=== PATIENT | female | born 1975 | race Caucasian/White ===

== ENCOUNTER 2022-12-11 08:33 | Outpatient (CLI) | payer OTHER ==
[~2022-12-11 08:33] MED LIST: INVOKAMET PO; TOPROL XL50 M1 PO; TYLENOL-CODEINE1 TAB PO
== END 2022-12-11 08:45 | disposition home or self-care (01) ==
LOC: MRI 08:33
PROVIDERS: ATTEND Obstetrics & Gynecology Gynecology
DX: D25.1 Intramural leiomyoma of uterus (principal); N92.1 Excessive and frequent menstruation with irregular cycle
CPT/HCPCS: 72196

== ENCOUNTER 2024-03-22 10:45 | Inpatient (IN) | payer OTHER ==
[~2024-03-22] VITALS: Ht 149.9 cm; Wt 80.7 kg
[2024-03-22] MEDS ORDERED: CRESTOR40 MG (11:37)
[2024-03-22] MEDS ORDERED: INDAPAMIDE1.25 MG (11:38)
[2024-03-22 13:03] LABS: RH POSITIVE
[2024-03-29] MEDS ORDERED: INVOKAMET 150-1 EACH (14:18)
[2024-03-29] MEDS ORDERED: CEFAZOLIN SODIUM 1,000 MG VIAL IV ONE (14:45)
[2024-03-29] MEDS ORDERED: MORPHINE SULFATE 4 MG/ML VIAL IV PRN (15:30)
[2024-03-29] MEDS ORDERED: RINGERS SOLUTION,LACTATED 1,000 ML IV SCH (15:30)
[2024-03-29] MEDS ORDERED: ONDANSETRON HCL 2 MG/ML VIAL IV PRN (15:30)
[2024-03-29] MEDS ORDERED: MORPHINE SULFATE 4 MG,MORPHINE SULFATE 2 MG IV SCH (16:00)
[2024-03-29] MEDS ORDERED: MORPHINE SULFATE 4 MG,MORPHINE SULFATE 2 MG IV PRN (16:00)
[2024-03-29] MEDS ORDERED: MORPHINE SULFATE 4 MG/ML VIAL IV ONE ×2 (16:05→16:35)
[2024-03-29] MEDS ORDERED: CEFAZOLIN SODIUM 1,000 MG VIAL IV SCH (18:00)
[2024-03-29 18:34] LABS: HEMATOCRIT 40.2 % (36.0-45.00); HEMOGLOBIN 12.8 g/dL (12.0-15.00); MEAN CELL VOLUME 71.9 fL (80.00-100.00); MEAN CORPUSCULAR HGB CONC 31.9 g/dl (32.0-36.0); PLATELET COUNT 238 K/uL (150-450); RED BLOOD COUNT 5.59 M/uL (4.00-6.00); RED CELL DISTRIBUTION WIDTH 19.6 % (11.5-14.5)
[2024-03-29 20:00] VITALS: BP 112/74
[2024-03-30 01:14] VITALS: BP 134/85
[2024-03-30 08:04] VITALS: BP 100/60
[2024-03-30] MEDS ORDERED: GABAPENTIN 300 MG CAPSULE PO PRN (08:15)
[2024-03-30] MEDS ORDERED: IBUprofen 800 MG TABLET PO PRN (08:15)
[2024-03-30] MEDS ORDERED: ENOXAPARIN SODIUM 40 MG/0.4 ML SYRINGE SUBCUTANEO SCH (09:00)
[2024-03-30] MEDS ORDERED: INDAPAMIDE 1.25 MG TABLET PO SCH (09:00)
[2024-03-30] MEDS ORDERED: METOPROLOL SUCCINATE 50 MG TAB.SR.24H PO SCH (09:00)
[2024-03-30 15:41] VITALS: BP 103/67
[2024-03-31 00:34] VITALS: BP 118/77
[2024-03-31] MEDS ORDERED: GABAPENTIN300 MG PO (07:18)
[2024-03-31] MEDS ORDERED: IBUPROFEN800 MG PO (07:18)
[2024-03-31 07:50] VITALS: BP 122/78
== END 2024-03-31 09:55 | disposition home or self-care (01) | DRG 743 ==
LOC: O/R 03-29 08:01 → OB/GYN 03-29 10:45
PROVIDERS: ADMIT Obstetrics & Gynecology Gynecology; ATTEND Obstetrics & Gynecology Gynecology
PROC: 0UT74ZZ Resection of Bilateral Fallopian Tubes, Percutaneous Endoscopic Approach (ICD-10-PCS; 2024-03-29)
PROC: 0USG4ZZ Reposition Vagina, Percutaneous Endoscopic Approach (ICD-10-PCS; 2024-03-29)
PROC: 0UT94ZZ Resection of Uterus, Percutaneous Endoscopic Approach (ICD-10-PCS; principal; 2024-03-29 15:30)
DX: D25.1 Intramural leiomyoma of uterus (principal); Z20.822 Contact with and (suspected) exposure to COVID-19

== ENCOUNTER 2024-04-05 09:42 | Emergency (ER) | payer OTHER ==
[~2024-04-05] VITALS: Ht 149.9 cm; Wt 77.6 kg
[~2024-04-05 09:42] MED LIST changes: +CRESTOR40 MG; +GABAPENTIN300 MG PO; +IBUPROFEN800 MG PO; +INDAPAMIDE1.25 MG; +INVOKAMET 150-1 EACH
[2024-04-05] MEDS ORDERED: RINGERS SOLUTION,LACTATED 1,000 ML IV SCH (10:15)
[2024-04-05 10:45] LABS: HEMATOCRIT 34.4 % (36.0-45.00); HEMOGLOBIN 11.4 g/dL (12.0-15.00); MEAN CELL VOLUME 70.3 fL (80.00-100.00); MEAN CORPUSCULAR HEMOGLOBIN 23.3 pg (27.00-32.0); MEAN CORPUSCULAR HGB CONC 33.2 g/dl (32.0-36.0); PLATELET COUNT 345 K/uL (150-450); RED BLOOD COUNT 4.89 M/uL (4.00-6.00); RED CELL DISTRIBUTION WIDTH 18.3 % (11.5-14.5)
[2024-04-05 11:09] LABS: INR 0.99; PARTIAL THROMBOPLASTIN TIME 29.9 SECONDS (22.0-34.0); PROTHROMBIN TIME 10.8 SECONDS (9.0-11.5)
[2024-04-05 11:28] LABS: BILIRUBIN TOTAL 0.36 mg/dL (0.3-1.2); CALCIUM 9.4 mg/dL (8.5-10.1); CREATININE SERUM 0.7 mg/dL (0.55-1.02); GFR 90.08; POTASSIUM 3.66 mEq/L (3.5-5.1)
== END 2024-04-05 15:43 | disposition home or self-care (01) ==
LOC: ER 09:44
PROVIDERS: General Practice
DX: N93.8 Other specified abnormal uterine and vaginal bleeding (principal); I11.9 Hypertensive heart disease without heart failure
CPT/HCPCS: 36415; 74177; 99284; Q9965